=== PATIENT | male | born 1970 | race African-American/Black ===

== ENCOUNTER 2017-11-20 08:56 | Emergency (ER) | payer OTHER ==
[~2017-11-20] VITALS: Ht 160 cm; Wt 68.0 kg
[2017-11-20 09:00] VITALS: TEMP 97.9
[2017-11-20 10:57] LABS: POTASSIUM 3.8 mmol/L (3.6-5.2)
[2017-11-20 10:58] LABS: PLATELET COUNT 225 K/uL (142-355)
[2017-11-20 11:45] VITALS: BP 128/82
== END 2017-11-20 11:45 | disposition home or self-care (01) ==
LOC: ED 08:56
PROVIDERS: Emergency Medicine
DX: J06.9 Acute upper respiratory infection, unspecified (principal); R19.7 Diarrhea, unspecified
CPT/HCPCS: 36415; 80053; 85027; 87081; 87804; 87880; 96365; 96374; 99284; J1885